=== PATIENT | female | born 1965 | race Caucasian/White ===

== ENCOUNTER 2021-01-05 03:22 | Emergency (ER) | payer OTHER ==
[~2021-01-05] VITALS: Ht 160 cm; Wt 61.2 kg
[2021-01-05] MEDS ORDERED: TENCON 50-3251 EACH PO (05:53)
== END 2021-01-05 06:22 | disposition home or self-care (01) ==
LOC: ER 03:22
DX: G43.909 Migraine, unspecified, not intractable, without status migrainosus (principal)

== ENCOUNTER 2021-02-20 02:53 | Emergency (ER) | payer OTHER ==
[~2021-02-20] VITALS: Ht 160 cm; Wt 59.9 kg
[~2021-02-20 02:53] MED LIST: TENCON 50-3251 EACH PO
[2021-02-20] MEDS ORDERED: ZITHROMAX500 MG PO (06:11)
[2021-02-20] MEDS ORDERED: TUSNEL LIQUID178 ML PO (06:11)
[2021-02-20] MEDS ORDERED: CLARITIN10 MG PO (06:11)
[2021-02-20] MEDS ORDERED: DOLOGEN CAPLET1 EACH PO (06:11)
[2021-02-20] MEDS ORDERED: MEDROLPACK PO (06:11)
== END 2021-02-20 06:15 | disposition home or self-care (01) ==
LOC: ER 02:53
DX: U07.1 COVID-19 (principal); R53.81 Other malaise; R50.9 Fever, unspecified

== ENCOUNTER 2021-02-22 06:22 | Emergency (ER) | payer OTHER ==
[~2021-02-22] VITALS: Ht 152.4 cm; Wt 64.4 kg
[~2021-02-22 06:22] MED LIST changes: +CLARITIN10 MG PO; +DOLOGEN CAPLET1 EACH PO; +MEDROLPACK PO; +TUSNEL LIQUID178 ML PO; +ZITHROMAX500 MG PO
== END 2021-02-22 09:51 | disposition home or self-care (01) ==
LOC: ER 06:22
DX: U07.1 COVID-19 (principal); R53.81 Other malaise; R05 Cough

== ENCOUNTER 2021-04-11 06:44 | Emergency (ER) | payer OTHER ==
[~2021-04-11] VITALS: Ht 160 cm; Wt 59.9 kg
[2021-04-11] MEDS ORDERED: ORPHENADRINE C100 MG PO (08:08)
[2021-04-11] MEDS ORDERED: KETO10TA2 PO (08:08)
== END 2021-04-11 08:24 | disposition home or self-care (01) ==
LOC: ER 06:44
DX: S10.83XA Contusion of other specified part of neck, initial encounter (principal); S20.219A Contusion of unspecified front wall of thorax, initial encounter; S40.012A Contusion of left shoulder, initial encounter; V43.52XA Car driver injured in collision with other type car in traffic accident, initial encounter; Y93.89 Activity, other specified; Y92.89 Other specified places as the place of occurrence of the external cause; Y99.8 Other external cause status; R07.89 Other chest pain; M25.512 Pain in left shoulder; M54.2 Cervicalgia

== ENCOUNTER 2021-04-21 00:58 | Emergency (ER) | payer OTHER ==
[~2021-04-21] VITALS: Ht 160 cm; Wt 59.9 kg
[~2021-04-21 00:58] MED LIST changes: +KETO10TA2 PO; +ORPHENADRINE C100 MG PO
[2021-04-21] MEDS ORDERED: PREVACID30 MG PO ×2 (05:22→05:23)
[2021-04-21] MEDS ORDERED: PEPCID40 MG PO ×2 (05:22→05:23)
== END 2021-04-21 05:40 ==
LOC: ER 00:58
DX: K29.00 Acute gastritis without bleeding (principal)

== ENCOUNTER 2021-06-10 18:04 | Emergency (ER) | payer OTHER ==
[~2021-06-10] VITALS: Ht 152.4 cm; Wt 56.7 kg
[~2021-06-10 18:04] MED LIST changes: +PEPCID40 MG PO; +PREVACID30 MG PO
== END 2021-06-10 20:31 | disposition home or self-care (01) ==
LOC: ER 18:04
DX: J45.901 Unspecified asthma with (acute) exacerbation (principal); J80 Acute respiratory distress syndrome; R05.9 Cough, unspecified

== ENCOUNTER 2021-07-06 08:00 | Outpatient (CLI) | payer OTHER | END 2021-07-06 08:30 | disposition home or self-care (01) | LOC: PPH VACUNA 08:00 | PROVIDERS: ATTEND Emergency Medicine Pediatric Emergency Medicine | DX: Z23 Encounter for immunization (principal) | CPT/HCPCS: 90686; G0008 ==

== ENCOUNTER 2024-02-20 12:08 | Outpatient (CLI) | payer OTHER | END 2024-02-20 12:17 | disposition home or self-care (01) | LOC: SONOGRAMA 12:08 | PROVIDERS: ATTEND General Practice | DX: M25.512 Pain in left shoulder (principal) ==